=== PATIENT | female | born 1965 | race Caucasian/White ===

== ENCOUNTER 2017-10-13 12:42 | Inpatient (IN) | payer OTHER ==
[~2017-10-13] VITALS: Ht 157.5 cm; Wt 87.5 kg
[2017-10-13] MEDS ORDERED: WARF5TAB90 PO (15:41)
[2017-10-13] MEDS ORDERED: LAMO200T35 PO (15:41)
[2017-10-13] MEDS ORDERED: LEVE250T PO (15:41)
[2017-10-13] MEDS ORDERED: GABA-113 PO (15:41)
[2017-10-13] MEDS ORDERED: EFF/375 PO (15:41)
[2017-10-13] MEDS ORDERED: ESCI1TAB10 PO (15:41)
[2017-10-13] MEDS ORDERED: TOPI200T6 PO (15:41)
[2017-10-13] MEDS ORDERED: LPT/40 PO (15:41)
[2017-10-13] MEDS ORDERED: ESLI1TAB2 PO (15:41)
[2017-10-13] MEDS ORDERED: ACETAMINOPHEN 325 MG TAB PO PRN (15:45)
[2017-10-13 15:52] VITALS: BP 119/81; PULSE 63; TEMP 36.6; O2SAT 98
--- NOTE | 2017-10-13 16:05 | History and Physical ---
History & Physical Date & Time of Service: Oct 13, 2017 at 15:24 Chief Complaint: Failed Uti Treatment Primary Care Physician: Kenneth Galindo D.O. History of Present Illness Source: patient, hospital records Ms. Larose has difficulty telling her history due to history of CVA with some expressive aphasia. She arrived at [facility] yesterday for UTI which is chronic multi resistant Klebsiella. She initially went to [facility] due to pain with urination, frequency, aches and chills but no fever, she is chronically incontinent. She has some sob and chest pain which she says is her baseline due to achalasia for which she has had surgical intervention in the past. She does not have any known cardiac history. She has a history of constipation and at times diarrhea. She generally does not have a bowl movement more than once per week. At [facility] she was found to have an elevated INR of 5.0 ROS Constitutional: no chills, aches, sweats or fever Respiratory: no cough, sputum, or wheezing Cardiac: no palpitations, edema, orthopnea or lightheadedness GI: no abdominal pain, nausea, vomiting, diarrhea or constipation : see HPI Extremities: no joint pain or weakness Skin: no rash All other systems reviewed and negative Pmhx: UTI, CVA with right hemiplesia and expressive aphasia, achalasia, partial bowel resection due to obstruction, surgery for achalasia, seizure disorder, depression, hld Past Medical/Surgical History Medical Problems: (1) UTI (urinary tract infection) Family History Heart disease Social History Smoking Status: Never Smoker Alcohol Use: none Marital Status: single Housing status: lives alone Occupational Status: disabled Allergies Coded Allergies: Cephalosporins (Verified Allergy, Unknown, RASH, 10/13/17) unknown reaction Nifedipine (Verified Allergy, Unknown, RASH, 10/13/17) unknown reaction Prochlorperazine (Verified Allergy, Unknown, RASH, 10/13/17) unknown reaction Home Medications Scheduled Atorvastatin (Lipitor), 40 MG PO DAILY Escitalopram Oxalate (Lexapro), 20 MG PO DAILY Eslicarbazepine Acetate (Aptiom), 400 TAB PO DAILY Gabapentin (Neurontin), 600 MG PO TID Lamotrigine (Lamictal), 200 MG PO BID Levetiracetam (Keppra), 500 MG PO BID Topiramate (Topamax), 1 TAB PO BID Venlafaxine Hcl (Effexor), 37.5 MG PO DAILY Warfarin Sodium (Coumadin), 1 TAB PO DAILY Physical Exam General: no distress Eyes: normal inspection, pupils reactive Respiratory: chest non tender, clear to auscultation, normal breath sounds, no respiratory distress, no accessory muscle use Cardiac: regular rate and rhythm, no rub or gallop, no murmur, no edema, no jvd GI/: active bowel sounds, no abd pain or tenderness, soft, non distended Extremities: normal range of motion, normal strength, non tender Neuro/Psych: alert and oriented x 3, normal mood and affect, expressive aphasia , right arm weakness with right hand contracture, right leg weakness, right facial droop, tongue skews right when stuck out, EOEM intact, left pupil 4mm, right pupil 3mm Skin: normal color, dry Diagnostics Laboratory Results Results Past 24 Hours Test 10/13/17 15:12 Range/Units Microbiology Results 10/13/17 Urine Culture, Ordered Pending Impression Assessment and Plan Ms. Larose is a 51 year old woman here with chronic klebsiella UTI Chronic Klebsiella UTI - admit med surg - Urine culture - consult ID - has had multiple rounds of ertapenem, will start imipenem - NSS @ 100 ml/hr - Coates catheter - consult urology - patient sees Dr. Moreno - cbc, prp - renal US - contact precautions Hx of seizure disorder - continue home Keppra, Aptiom, Gabapentin, Topamax Hx of CVA with right hemiplegia - INR at [facility] 5.24 - repeat INR - hold warfarin for now - continue lipitor Full code DVT prophylaxis - SCDs, hold warfarin for supratherapeutic INR PARKING ATTENDANT Physician Supervision Note: I interviewed and examined the patient. Discussed with Rachel Ascencio PARKING ATTENDANT and agree with findings and plan as documented in the note. Any exceptions or clarifications are listed here: None This patient is a transfer from [facility] for multidrug-resistant, ESBL, Klebsiella recurrent urinary tract infection. Patient has physical limitations due to stroke with hemiplegia and has had recurrent UTIs typically seen by Dr. Moreno in the [facility] urology group. Patient presented to [facility] shortly after being treated for this Klebsiella UTI with recurrent recurrence and request for transfer was for urological and infectious disease expertise Sensitivity sent from [facility] do include the "penem" class of antibiotics she will be instituted on imipenem with infectious disease consultation Documented By: Tez Miller Advanced Directives Existing Advance Directive: No Existing Living Will: No Existing Power of Heel Splitter: No Existing Health Care Proxy: No Resuscitation Status full code VTE Prophylaxis Will order VTE Prophylaxis: Yes
[2017-10-13] MEDS ORDERED: ONDANSETRON INJ 2 MG/ML 2 ML VIAL IV PRN (16:15)
[2017-10-13 16:32] LABS: MEAN CELL VOLUME 92.2 fL (80-100); MEAN CORPUSCULAR HEMOGLOBIN 29.1 pg (25-34); MEAN CORPUSCULAR HGB CONC 31.6 g/dl (32-36); MEAN PLATELET VOLUME 9.2 fL (7.4-10.4); PLATELET COUNT 198 K/uL (130-400); RED CELL DISTRIBUTION WIDTH CV 13.9 % (11.5-14.5); RED CELL DISTRIBUTION WIDTH SD 46.7 fL (36.4-46.3); WHITE BLOOD COUNT 7.11 K/uL (4.8-10.8)
[2017-10-13 16:45] LABS: INR 4.4 (0.9-1.1)
[2017-10-13 16:54] LABS: BLOOD UREA NITROGEN 6 mg/dl (7-18); CALCIUM 8.6 mg/dl (8.5-10.1); CARBON DIOXIDE 21 mmol/L (21-32); CREATININE 0.64 mg/dl (0.60-1.20); GLUCOSE 84 mg/dl (70-99); SODIUM 141 mmol/L (136-145)
[2017-10-13 17:32] VITALS: BMI 35.3
[2017-10-13] MEDS: SODIUM CHLORIDE 0.9% 1000ML 1,000 ML IV SCH (17:43)
[2017-10-13] MEDS: IMIPENEM/CILASTATIN IV 500 MG in DEXTROSE 5% 100ML 100 ML IV SCH (18:09)
[2017-10-13 18:16] VITALS: BP 119/81; PULSE 63; TEMP 36.6; Ht 157.5 cm; Wt 87.5 kg
--- NOTE | 2017-10-13 20:01 | DIAGNOSTIC IMAGING REPORT ---
ULTRASOUND KIDNEYS AND BLADDER CLINICAL HISTORY: Recurrent urinary tract infections. COMPARISON STUDY: No priors. TECHNIQUE: Real-time, grayscale, and color flow sonography of the kidneys and bladder is performed. Images are reviewed in the transverse and longitudinal planes. FINDINGS: Kidneys: The kidneys are normal in size and echotexture. The right kidney measures 9.7 x 4.7 x 5.0 cm and the left kidney measures 12.1 x 4.5 x 5.3 cm. There is no hydronephrosis. Bilateral nonobstructing renal calculi measuring up to 8 mm. There is no sonographic evidence of contour deforming renal mass lesion. No perinephric fluid is identified. Bladder: The bladder is largely decompressed around a Coates catheter and not well evaluated. Ureteral jets could not be evaluated. IMPRESSION: 1. The kidneys are normal in size and without hydronephrosis. 2. Bilateral nonobstructing renal calculi are identified. 3. The bladder was decompressed around a Coates catheter and not well evaluated. Electronically signed by: Jaun Merlos M.D. 10/13/2017 8:00 PM Dictated Date/Time: 10/13/2017 7:59 PM
[2017-10-13] MEDS: TOPIRAMATE 100 MG TAB PO SCH (20:17)
[2017-10-13] MEDS: BACLOFEN TAB 20 MG TAB PO SCH (20:18)
[2017-10-13] MEDS: GABAPENTIN 300 MG CAP PO SCH (20:19)
[2017-10-13] MEDS: LEVETIRACETAM 250 MG TAB PO SCH (20:19)
[2017-10-13 23:23] VITALS: BP 115/77; PULSE 64; TEMP 36.6; O2SAT 98
[2017-10-14] MEDS: IMIPENEM/CILASTATIN IV 500 MG in DEXTROSE 5% 100ML 100 ML IV SCH ×4 (00:23→17:32)
[2017-10-14] MEDS: SODIUM CHLORIDE 0.9% 1000ML 1,000 ML IV SCH ×2 (06:04→13:00)
[2017-10-14 07:44] LABS: HEMATOCRIT 35.4 % (37-47); HEMOGLOBIN 11.4 g/dL (12.0-16.0); MEAN CELL VOLUME 91.5 fL (80-100); MEAN CORPUSCULAR HEMOGLOBIN 29.5 pg (25-34); MEAN CORPUSCULAR HGB CONC 32.2 g/dl (32-36); MEAN PLATELET VOLUME 9.2 fL (7.4-10.4); PLATELET COUNT 184 K/uL (130-400); RED CELL DISTRIBUTION WIDTH CV 13.8 % (11.5-14.5); RED CELL DISTRIBUTION WIDTH SD 46.1 fL (36.4-46.3); WHITE BLOOD COUNT 7.84 K/uL (4.8-10.8)
[2017-10-14 07:45] VITALS: BP 81/49; PULSE 64; TEMP 36.7; O2SAT 96
[2017-10-14] MEDS: VENLAFAXINE HCL XR 150 MG CAPXR PO SCH (07:48)
[2017-10-14] MEDS: GABAPENTIN 300 MG CAP PO SCH ×3 (07:49→20:26)
[2017-10-14] MEDS: LEVETIRACETAM 250 MG TAB PO SCH ×2 (07:49→20:28)
[2017-10-14] MEDS: ESCITALOPRAM OXALATE 20 MG TAB PO SCH (07:49)
[2017-10-14] MEDS: BACLOFEN TAB 20 MG TAB PO SCH ×2 (07:50→20:27)
[2017-10-14] MEDS: ATORVASTATIN 40 MG TAB PO SCH (07:50)
[2017-10-14] MEDS: TOPIRAMATE 100 MG TAB PO SCH ×2 (07:51→20:28)
[2017-10-14] MEDS: APTIOM PO SCH (07:51)
[2017-10-14 07:53] LABS: INR 2.4 (0.9-1.1)
[2017-10-14 08:14] LABS: CALCIUM 7.8 mg/dl (8.5-10.1); CREATININE 0.66 mg/dl (0.60-1.20); POTASSIUM 3.6 mmol/L (3.5-5.1)
[2017-10-14 10:15] LABS: INR 2.2 (0.9-1.1)
--- NOTE | 2017-10-14 10:50 | Hospitalist Progress Note ---
Hospitalist Progress Note Date of Service Oct 14, 2017. (Rachel Ascencio CRNP) Subjective Pt evaluation today including: conversation w/ patient, physical exam, chart review, lab review, review of inpatient medication list Voiding: willoughby catheter in place Ms. Larose is comfortable this morning, no complaints. ROS Constitutional: no chills, aches, sweats or fever Respiratory: no sob,cough, sputum, or wheezing Cardiac: no chest pain, palpitations, edema, orthopnea or lightheadedness GI: no abdominal pain, nausea, vomiting, diarrhea or constipation : no dysuria or hesitancy Extremities: no joint pain or weakness Skin: no rash All other systems reviewed and negative (Rachel Ascencio CRNP) Medications Medications Administered Medications (Trade) Dose Ordered Sig/Silvia Route Start Time Stop Time Status Last Admin Dose Admin Imipenem/ Cilastatin Sodium 500 mg/Dextrose 110 ml @ 100 mls/hr Q6H IV 10/13/17 18:00 10/18/17 17:59 10/14/17 06:04 100 MLS/HR Sodium Chloride 1,000 ml @ 100 mls/hr Q10H IV 10/13/17 17:00 11/12/17 16:59 10/14/17 06:04 100 MLS/HR Atorvastatin Calcium (Lipitor Tab) 40 mg DAILY PO 10/14/17 08:00 11/13/17 07:59 10/14/17 07:50 40 MG Escitalopram Oxalate (Lexapro Tab) 20 mg DAILY PO 10/14/17 08:00 11/13/17 07:59 10/14/17 07:49 20 MG Gabapentin (Neurontin Cap) 600 mg TID PO 10/13/17 20:00 11/12/17 19:59 10/14/17 07:49 600 MG Lamotrigine (Lamictal Tab) 200 mg BID PO 10/13/17 20:00 11/12/17 19:59 10/14/17 07:49 200 MG Levetiracetam (Keppra Tab) 500 mg BID PO 10/13/17 20:00 11/12/17 19:59 10/14/17 07:49 500 MG Topiramate (Topamax Tab) 200 mg BID PO 10/13/17 20:00 11/12/17 19:59 10/14/17 07:51 200 MG Venlafaxine HCl (effeXOR EXTENDED REL CAP) 150 mg DAILY PO 10/14/17 08:00 11/13/17 07:59 10/14/17 07:48 150 MG Baclofen (Lioresal Tab) 10 mg BID PO 10/13/17 20:00 11/12/17 19:59 10/14/17 07:50 10 MG Non-Formulary Medication (Non-Formulary Patient'S Own Med) 1 ea QAM PO 10/14/17 08:00 11/13/17 07:59 10/14/17 07:51 1 EA (Rachel Ascencio CRNP) Objective Vital Signs Date Time Temp Pulse Resp B/P (MAP) Pulse Ox O2 Delivery O2 Flow Rate FiO2 10/14/17 07:45 36.7 64 16 81/49 (60) 96 Room Air 10/13/17 23:23 36.6 64 18 115/77 (90) 98 Room Air 10/13/17 20:00 Room Air 10/13/17 18:16 36.6 63 18 119/81 Room Air 10/13/17 15:52 36.6 63 18 119/81 (94) 98 Room Air (Rachel Ascencio CRNP) Physical Exam Notes: General: no distress Eyes: normal inspection, PERLL Respiratory: chest non tender, clear to auscultation, normal breath sounds, no respiratory distress, no accessory muscle use Cardiac: regular rate and rhythm, no rub or gallop, no murmur, no edema, no jvd GI/: active bowel sounds, no abd pain or tenderness, soft, non distended Extremities: normal range of motion, normal strength, non tender Neuro/Psych: alert and oriented x 3, normal mood and affect Skin: normal color, dry (Rachel Ascencio CRNP) Laboratory Results Last 24 Hours Test 10/13/17 16:10 10/14/17 07:14 10/14/17 09:41 White Blood Count 7.11 K/uL 7.84 K/uL Red Blood Count 4.12 M/uL 3.87 M/uL Hemoglobin 12.0 g/dL 11.4 g/dL Hematocrit 38.0 % 35.4 % Mean Corpuscular Volume 92.2 fL 91.5 fL Mean Corpuscular Hemoglobin 29.1 pg 29.5 pg Mean Corpuscular Hemoglobin Concent 31.6 g/dl 32.2 g/dl RDW Standard Deviation 46.7 fL 46.1 fL RDW Coefficient of Variation 13.9 % 13.8 % Platelet Count 198 K/uL 184 K/uL Mean Platelet Volume 9.2 fL 9.2 fL Prothrombin Time 44.5 SECONDS 24.6 SECONDS 22.8 SECONDS Prothromb Time International Ratio 4.4 2.4 2.2 Sodium Level 141 mmol/L 139 mmol/L Potassium Level 4.0 mmol/L 3.6 mmol/L Chloride Level 113 mmol/L 109 mmol/L Carbon Dioxide Level 21 mmol/L 21 mmol/L Anion Gap 7.0 mmol/L 9.0 mmol/L Blood Urea Nitrogen 6 mg/dl 6 mg/dl Creatinine 0.64 mg/dl 0.66 mg/dl Estimated GFR () 118.1 116.9 Estimated GFR (Non- 101.9 100.9 BUN/Creatinine Ratio 9.6 9.0 Random Glucose 84 mg/dl 90 mg/dl Calcium Level 8.6 mg/dl 7.8 mg/dl Est Creatinine Clear Calc Drug Dose 101.3 ml/min (Rachel Ascencio CRNP) Assessment and Plan Ms. Larose is a 51 year old woman here with chronic klebsiella UTI Chronic Klebsiella UTI - admit med surg - Urine culture pending - consult ID - has had multiple rounds of ertapenem for these infections, continue imipenem - NSS @ 100 ml/hr - Willoughby catheter - consult urology - patient sees Dr. Moreno - renal US - no abnormalities visualized - contact precautions Hx of seizure disorder - continue home Keppra, Aptiom, Gabapentin, Topamax Hx of CVA with right hemiplegia - INR at [facility] 5.24 - repeat INR this morning 2.2 - will restart warfarin today - PT/INR am - continue lipitor Full code DVT prophylaxis - SCDs, warfarin (Rachel Ascencio CRNP) ACCOUNT MANAGEMENT ASSISTANT Physician Supervision Note: I discussed with Rachel Ascencio NP and agree with findings and plan as documented in the note. Any exceptions or clarifications are listed here: None We are waiting both urology and infectious disease consultation the patient is hemodynamically stable at this time continuing antibiotic therapy Documented By: Tez Miller (Tez Miller M.D.)
[2017-10-14 15:25] VITALS: BP 93/63; PULSE 77; TEMP 36.7; O2SAT 96
[2017-10-14] MEDS: WARFARIN SOD 5 MG TAB PO SCH (16:05)
--- NOTE | 2017-10-14 19:37 | Urology Consultation ---
History General Date of Service: Oct 14, 2017. Chief Complaint: ESBL UTI Primary Care Physician: Kenneth Galindo D.O. Pt seen a urologist before?: Yes History of Present Illness Known patient with chronic reoccuring intermittent UTIs Has Kleb ESBL UTI Moderates symptoms. Likely colonized at this point Multiple medical issues at baseline after major CVA ON iv antibiotics HPI - Stones Number: Bilateral Size: 8 mm Location: kidney Laboratory Labs were reviewed and are within normal limits unless listed below. Labs are available in the chart and at [facility] Past History chronic back pain, chronic pelvic pain, coronary artery disease (stroke), migraines, urinary tract infection Social History Marital status: single Housing status: lives alone Occupation status: disabled Allergies Coded Allergies: Cephalosporins (Verified Allergy, Unknown, RASH, 10/13/17) unknown reaction Nifedipine (Verified Allergy, Unknown, RASH, 10/13/17) unknown reaction Prochlorperazine (Verified Allergy, Unknown, RASH, 10/13/17) unknown reaction Medications Home Medications: Home Meds and Scripts Medications Dose Route/Sig Max Daily Dose Days Date Category Coumadin (Warfarin Sodium) 5 Mg Tab 1 Tab PO DAILY 90 10/13/17 Reported Aptiom (Eslicarbazepine Acetate) 400 Mg Tab 400 Tab PO DAILY 10/13/17 Reported Effexor (Venlafaxine Hcl) 37.5 Mg Tab 37.5 Mg PO DAILY 10/13/17 Reported Topamax (Topiramate) 200 Mg Tab 1 Tab PO BID 30 10/13/17 Reported Keppra (Levetiracetam) 250 Mg Tab 500 Mg PO BID 10/13/17 Reported Lamictal (Lamotrigine) 200 Mg Tab 200 Mg PO BID 10/13/17 Reported Neurontin (Gabapentin) 300 Mg Cap 600 Mg PO TID 10/13/17 Reported Lexapro (Escitalopram Oxalate) 20 Mg Tab 20 Mg PO DAILY 10/13/17 Reported Lipitor (Atorvastatin) 40 Mg Tab 40 Mg PO DAILY 10/13/17 Reported Inpatient Medications: Current Inpatient Medications Medications (Trade) Dose Ordered Sig/Silvia Route Start Time Stop Time Status Last Admin Dose Admin Acetaminophen (Tylenol Tab) 650 mg Q4H PRN PO 10/13/17 15:45 11/12/17 15:44 Imipenem/ Cilastatin Sodium 500 mg/Dextrose 110 ml @ 100 mls/hr Q6H IV 10/13/17 18:00 10/18/17 17:59 10/14/17 06:04 100 MLS/HR Sodium Chloride 1,000 ml @ 100 mls/hr Q10H IV 10/13/17 17:00 11/12/17 16:59 10/14/17 06:04 100 MLS/HR Atorvastatin Calcium (Lipitor Tab) 40 mg DAILY PO 10/14/17 08:00 11/13/17 07:59 10/14/17 07:50 40 MG Escitalopram Oxalate (Lexapro Tab) 20 mg DAILY PO 10/14/17 08:00 11/13/17 07:59 10/14/17 07:49 20 MG Gabapentin (Neurontin Cap) 600 mg TID PO 10/13/17 20:00 11/12/17 19:59 10/14/17 07:49 600 MG Lamotrigine (Lamictal Tab) 200 mg BID PO 10/13/17 20:00 11/12/17 19:59 10/14/17 07:49 200 MG Levetiracetam (Keppra Tab) 500 mg BID PO 10/13/17 20:00 11/12/17 19:59 10/14/17 07:49 500 MG Topiramate (Topamax Tab) 200 mg BID PO 10/13/17 20:00 11/12/17 19:59 10/14/17 07:51 200 MG Venlafaxine HCl (effeXOR EXTENDED REL CAP) 150 mg DAILY PO 10/14/17 08:00 11/13/17 07:59 10/14/17 07:48 150 MG Baclofen (Lioresal Tab) 10 mg BID PO 10/13/17 20:00 11/12/17 19:59 10/14/17 07:50 10 MG Ondansetron HCl (Zofran Inj) 4 mg Q6H PRN IV 10/13/17 16:15 11/12/17 16:14 Non-Formulary Medication (Non-Formulary Patient'S Own Med) 1 ea QAM PO 10/14/17 08:00 11/13/17 07:59 10/14/17 07:51 1 EA Warfarin Sodium (Coumadin Tab) 5 mg DAILY@1600 PO 10/14/17 16:00 11/13/17 15:59 Review of Systems Review of Systems All Other Systems: Reviewed and Negative Physical Exam Vital Signs: Vital Signs Past 12 Hours Date Time Temp Pulse Resp B/P (MAP) Pulse Ox O2 Delivery O2 Flow Rate FiO2 10/14/17 07:45 36.7 64 16 81/49 (60) 96 Room Air Physical Exam: General Appearance: WD/WN, no apparent distress Eyes: bilateral eyes normal inspection ENT: hearing grossly normal Neck: no JVD, trachea midline Respiratory/Chest: no respiratory distress Cardiovascular: regular rate, rhythm Gastrointestinal: Abdomen: normal abdomen Extremities: normal inspection Neurologic/Psychiatric: 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 ESBL Kleb UTI, chronic with acute exacerbation 2. BIlateral stones Plan to continue antibiotics and supportive care. Agree with ID Consult to assess source and other management options to deal with infections May need stones treated as possible source, however will need better control of UTI issues. Monitor and follow.
[2017-10-14 22:44] VITALS: BP 102/68; PULSE 63; TEMP 36.7; O2SAT 96
[2017-10-15] MEDS: SODIUM CHLORIDE 0.9% 1000ML 1,000 ML IV SCH ×3 (00:28→19:45)
[2017-10-15] MEDS: IMIPENEM/CILASTATIN IV 500 MG in DEXTROSE 5% 100ML 100 ML IV SCH ×3 (00:28→12:21)
[2017-10-15 05:57] LABS: HEMATOCRIT 35.4 % (37-47); HEMOGLOBIN 11.4 g/dL (12.0-16.0); MEAN CORPUSCULAR HEMOGLOBIN 29.3 pg (25-34); MEAN CORPUSCULAR HGB CONC 32.2 g/dl (32-36); MEAN PLATELET VOLUME 9.3 fL (7.4-10.4); PLATELET COUNT 169 K/uL (130-400); RED CELL DISTRIBUTION WIDTH CV 13.8 % (11.5-14.5); RED CELL DISTRIBUTION WIDTH SD 45.6 fL (36.4-46.3); WHITE BLOOD COUNT 5.05 K/uL (4.8-10.8)
[2017-10-15 06:10] LABS: INR 1.7 (0.9-1.1)
[2017-10-15 06:36] LABS: CALCIUM 8.2 mg/dl (8.5-10.1); CREATININE 0.6 mg/dl (0.60-1.20); POTASSIUM 3.7 mmol/L (3.5-5.1)
[2017-10-15 07:40] VITALS: BP 93/59; PULSE 64; TEMP 36.6; O2SAT 97
[2017-10-15] MEDS: TOPIRAMATE 100 MG TAB PO SCH ×2 (09:27→19:46)
[2017-10-15] MEDS: VENLAFAXINE HCL XR 150 MG CAPXR PO SCH (09:27)
[2017-10-15] MEDS: LEVETIRACETAM 250 MG TAB PO SCH ×2 (09:28→19:47)
[2017-10-15] MEDS: ATORVASTATIN 40 MG TAB PO SCH (09:28)
[2017-10-15] MEDS: BACLOFEN TAB 20 MG TAB PO SCH ×2 (09:28→19:46)
[2017-10-15] MEDS: ESCITALOPRAM OXALATE 20 MG TAB PO SCH (09:28)
[2017-10-15] MEDS: GABAPENTIN 300 MG CAP PO SCH ×3 (09:28→19:47)
[2017-10-15] MEDS: APTIOM PO SCH (09:29)
--- NOTE | 2017-10-15 11:04 | Progress Note ---
Progress Note Date of Service Oct 15, 2017. Progress Note ID Consult Dictated #[id number] A/P: 1. UTI - mdr k. pneumo at outside facility -would give 14 days total, tolerating imipenem, repeat culture negative -If previous culture is sensitive to Invanz, could give 1 g daily for ease of use at home with once daily dosing -Ok for d/c when otherwise stable. thank you
--- NOTE | 2017-10-15 11:15 | INFECT. DISEASE CONSULTATION ---
DATE OF CONSULTATION: 10/15/2017 HISTORY OF PRESENT ILLNESS: This is a 51-year-old female who was admitted to the hospital as a transfer from [place] with history of UTI. Per the H and P, she has a history of multidrug resistant Klebsiella. Review of old records does not reveal any previous cultures here. Sensitivities are not known. She is feeling significantly better. As part of her therapy, she was placed on imipenem and she remains on this. She has been afebrile since admission. A repeat urine culture was obtained here and is negative. Her white blood cell count is within normal limits. She does have a Coates catheter in place but states she normally does not have a catheter at home. She was also seen by urology and she is known to have stones. No workup for management of her stones is in progress as she is currently dealing with recurrent infection. On my examination today, she denies any abdominal pain. She denies any fevers or chills. She denies any chest pain, cough, or shortness of breath. Overall, she states she is feeling better. She is tolerating antibiotics well. Her remaining review of systems is reviewed and unremarkable. PAST MEDICAL HISTORY: Significant for CVA with expressive aphasia and right-sided weakness and recurrent urinary tract infection with kidney stones. PAST SURGICAL HISTORY: Significant for partial bowel resection, achalasia surgery. FAMILY HISTORY: Noncontributory. SOCIAL HISTORY: Negative for tobacco use, alcohol use or drug use. ALLERGIES: SHE HAS ALLERGIES TO CEPHALOSPORINS, NIFEDIPINE AND PROCHLORPERAZINE. CURRENT MEDICATIONS: Coumadin, Lipitor, Lexapro, Effexor, Neurontin, Lamictal, Keppra, Topamax, baclofen, imipenem, Zofran and Tylenol. PHYSICAL EXAMINATION: VITAL SIGNS: She is afebrile, pulse 64, respiratory rate 16, blood pressure 93/59, oxygen saturation is 97% on room air. GENERAL: She is awake, alert and oriented x3. She is in no acute distress. HEENT: Mucous membranes are moist. Extraocular muscles are intact. HEART: Regular. LUNGS: Clear. ABDOMEN: Soft. Coates is in place with yellow urine. There is no edema. LABORATORY STUDIES: CBC today, white blood cell count 5.0, hemoglobin 11.4, platelets 169. Chemistry panel: Sodium 141, potassium 3.7, chloride 112, bicarbonate 22, BUN 7, creatinine 0.6, glucose 77. Hep C screen is negative. Urine culture is negative. UA was not performed. I do not have previous sensitivities, but per the H and P, she has a multidrug resistant Klebsiella. Ultrasound of the kidneys shows no hydronephrosis and bilateral nonobstructing stones. ASSESSMENT AND PLAN: Urinary tract infection. Certainly, she can be maintained on imipenem; however, if her isolate is sensitive to ertapenem, she could be discharged home once daily ertapenem for use at home. I would give a total of 14 days. She will need additional urologic followup as her stones may very well be a source of recurrent infection. Thank you for this consultation.
--- NOTE | 2017-10-15 14:51 | Hospitalist Progress Note ---
Hospitalist Progress Note Date of Service Oct 15, 2017. Subjective Pt evaluation today including: conversation w/ patient, conversation w/ family ( at bedside), physical exam, chart review, lab review, review of inpatient medication list Pain: intermittent suprapubic pain PO Intake: Tolerating PO diet Voiding: willoughby catheter in place Patient complains of an intermittent sharp suprapubic pain, that can be up to a 7/10 in intensity at times. She states the pain at times radiates to her left flank. She otherwise denies acute complaints. She is tolerating a PO diet well. A Willoughby catheter is in place. The patient denies fevers, chills, sweats , chest pain, palpitations, claudication, cough, wheezing, shortness of breath, nausea, vomiting, dysuria, hematuria, urinary retention, paralysis, weakness, numbness and tingling. Additional Comments: See HPI for pertinent positives and negatives. All other systems reviewed and negative. Objective Vital Signs Date Time Temp Pulse Resp B/P (MAP) Pulse Ox O2 Delivery O2 Flow Rate FiO2 10/15/17 09:30 Room Air 10/15/17 07:40 36.6 64 16 93/59 (70) 97 Room Air 10/14/17 22:44 36.7 63 18 102/68 (79) 96 Room Air 10/14/17 22:00 Room Air 10/14/17 15:25 36.7 77 18 93/63 (73) 96 Room Air Physical Exam Notes: General appearance: +Obese. Well-developed, well-nourished, no apparent distress Head: Normocephalic, atraumatic Eyes: Normal inspection, PERRL, EOMI ENT: Normal ENT inspection, hearing grossly normal, pharynx normal Neck: Supple, no JVD, trachea midline Respiratory/Chest: Lungs clear to auscultation, normal breath sounds, no respiratory distress Cardiovascular: Regular rate & rhythm, no gallop, no murmur Abdomen/GI: +Suprapubic area TTP. Normal bowel sounds, soft Extremities/Musculoskeletal: Normal inspection, no calf tenderness, no pedal edema Neurological/Psych: +Right hemiplegia and mild aphasia from previous CVA. Alert, normal mood/affect, oriented x 3 Skin: Normal color, warm/dry, no rash Laboratory Results Last 24 Hours Test 10/15/17 05:34 White Blood Count 5.05 K/uL Red Blood Count 3.89 M/uL Hemoglobin 11.4 g/dL Hematocrit 35.4 % Mean Corpuscular Volume 91.0 fL Mean Corpuscular Hemoglobin 29.3 pg Mean Corpuscular Hemoglobin Concent 32.2 g/dl RDW Standard Deviation 45.6 fL RDW Coefficient of Variation 13.8 % Platelet Count 169 K/uL Mean Platelet Volume 9.3 fL Prothrombin Time 18.1 SECONDS Prothromb Time International Ratio 1.7 Sodium Level 141 mmol/L Potassium Level 3.7 mmol/L Chloride Level 112 mmol/L Carbon Dioxide Level 22 mmol/L Anion Gap 7.0 mmol/L Blood Urea Nitrogen 7 mg/dl Creatinine 0.60 mg/dl Est Creatinine Clear Calc Drug Dose 111.4 ml/min Estimated GFR () 120.6 Estimated GFR (Non- 104.1 BUN/Creatinine Ratio 11.5 Random Glucose 77 mg/dl Calcium Level 8.2 mg/dl Hepatitis C Antibody Screen NEG Assessment and Plan 51 y/o female with a history of recurrent klebsiella UTI, h/o CVA w/residual right hemiplegia and aphasia, HLD, seizure disorder, and depression who presents from [facility] with acute klebsiella UTI. Acute klebsiella UTI, h/o recurrent UTI--transferred due to "failure of ertapenem" but recurrent infections may be related to bilateral renal stones rather than failing ertapenem - Admit med surg - Reviewed urine culture at [facility], positive for EBSL Klebsiella w/good sensitivity to ertapenem - Urine culture here negative, was treated w/abx at [facility] - ID consulted, appreciate recs: If culture has sensitivity to ertapenem, would discharge home w/this as it is only once a day. Would continue for 14 days. - Will change imipenem to ertapenem, first dose tomorrow - Consented for PICC line - Urology consulted, appreciate recs: Continue abx and supportive care. May need stones treated as possible source, however will need better control of UTI issues. - NSS @ 100 ml/hr - Willoughby catheter - Renal US - no abnormalities visualized - contact precautions Supratherapeutic INR--resolved -INR over 5 at [facility], warfarin was held -INR 1.7 on 10/15, continue to monitor -Continue warfarin 5 mg PO qd H/o CVA w/residual right hemiplegia, HLD--stable - Continue Lipitor Seizure disorder--stable -Continue Lamictal, Keppra, gabapentin, Aptiom, Topamax Depression--stable -Continue Lexapro and Effexor DVT prophylaxis -Warfarin -SCDs Code Status -Level I, FULL RESUSCITATION STATUS Dispo -Case management to set up outpatient abx, will need 2 weeks
[2017-10-15] MEDS: WARFARIN SOD 5 MG TAB PO SCH (16:16)
[2017-10-15 22:58] VITALS: BP 108/74; PULSE 63; TEMP 36.3; O2SAT 95
[2017-10-16] MEDS: SODIUM CHLORIDE 0.9% 1000ML 1,000 ML IV SCH (04:38)
[2017-10-16 06:10] LABS: HEMATOCRIT 34.6 % (37-47); MEAN CELL VOLUME 91.3 fL (80-100); MEAN CORPUSCULAR HGB CONC 31.8 g/dl (32-36); MEAN PLATELET VOLUME 9.2 fL (7.4-10.4); PLATELET COUNT 169 K/uL (130-400); RED CELL DISTRIBUTION WIDTH CV 13.6 % (11.5-14.5); RED CELL DISTRIBUTION WIDTH SD 45.2 fL (36.4-46.3); WHITE BLOOD COUNT 5.61 K/uL (4.8-10.8)
[2017-10-16 06:30] LABS: INR 1.9 (0.9-1.1)
[2017-10-16 06:44] LABS: CALCIUM 7.8 mg/dl (8.5-10.1); CREATININE 0.6 mg/dl (0.60-1.20); POTASSIUM 3.9 mmol/L (3.5-5.1)
[2017-10-16 07:50] VITALS: BP 110/73; PULSE 58; TEMP 36.6; O2SAT 95
[2017-10-16 08:00] VITALS: O2SAT 95
[2017-10-16] MEDS: VENLAFAXINE HCL XR 150 MG CAPXR PO SCH (08:07)
[2017-10-16] MEDS: ESCITALOPRAM OXALATE 20 MG TAB PO SCH (08:08)
[2017-10-16] MEDS: GABAPENTIN 300 MG CAP PO SCH ×2 (08:08→14:21)
[2017-10-16] MEDS: ATORVASTATIN 40 MG TAB PO SCH (08:09)
[2017-10-16] MEDS: TOPIRAMATE 100 MG TAB PO SCH (08:09)
[2017-10-16] MEDS: LEVETIRACETAM 250 MG TAB PO SCH (08:10)
[2017-10-16] MEDS: APTIOM PO SCH (08:10)
[2017-10-16] MEDS: BACLOFEN TAB 20 MG TAB PO SCH (08:10)
[2017-10-16] MEDS ORDERED: ERTAPENEM IV 1 GM in SODIUM CHLOR 0.9% AD-VAN 50ML 50 ML IV SCH (09:00)
[2017-10-16] MEDS ORDERED: ERTA1INJ3 IV (12:18)
--- NOTE | 2017-10-16 12:38 | Discharge Instructions ---
Discharge Instructions Date of Service Oct 16, 2017. Admission Reason for Admission: Failed Uti Treatment Discharge Discharge Diagnosis / Problem: Urinary tract infection Discharge Goals Goal(s): Decrease discomfort, Diagnostic testing, Therapeutic intervention Activity Recommendations Activity Limitations: resume your previous activity . Instructions / Follow-Up Instructions / Follow-Up You were transferred to [facility] from [facility] after being found to have another klebsiella urinary tract infection (UTI). Your urine culture results were reviewed and you were evaluated by both urology and infectious disease, who felt that your kidney stones may be the source of these recurrent infections, rather than failure of the antibiotic treatments. You had a midline placed to receive IV antibiotics and have been discharged with a 2 week IV antibiotic course. You are now medically stable for discharge. Medications: *You will receive ertapenem 1 gram IV daily for 14 days to complete your antibiotic course. *Continue your home medications as prescribed. Follow up: *You will be scheduled to follow up with your primary care provider as well as urology. After your acute infection resolves, urology will address your kidney stones as an outpatient as these may be the source of the recurrent infections. Please seek medical attention if you experience fevers, chills, sweats, dizziness/lightheadedness, loss of consciousness, chest pain, shortness of breath, nausea, vomiting, numbness or tingling. Current Hospital Diet Patient's current hospital diet: AHA Diet (Heart Healthy) Discharge Diet Recommended Diet: AHA Diet (Heart Healthy) Pending Studies Studies pending at discharge: no Medical Emergencies . Who to Call and When: Medical Emergencies: If at any time you feel your situation is an emergency, please call 911 immediately. . Non-Emergent Contact Non-Emergency issues call your: Primary Care Provider, Urologist Call Non-Emergent contact if: you have a fever, you have any medication questions . Past History Medical & Surgical History: (1) UTI (urinary tract infection) . "Provider Documentation" section prepared by Amparo Webb. .
[2017-10-16 12:45] VITALS: BP 110/73; PULSE 58; TEMP 36.6; O2SAT 95
--- NOTE | 2017-10-16 12:47 | Discharge Summary ---
Discharge Summary Date of Service Oct 16, 2017. Discharge Summary Admission Date: Oct 13, 2017 at 14:25 Discharge Date: Oct 16, 2017 Discharge Disposition: Home Principal Diagnosis: ESBL Klebsiella UTI Problems/Secondary Diagnoses: Recurrent klebsiella UTI, h/o CVA w/residual right hemiplegia and aphasia, HLD, seizure disorder, depression Procedures: ULTRASOUND KIDNEYS AND BLADDER CLINICAL HISTORY: Recurrent urinary tract infections. COMPARISON STUDY: No priors. TECHNIQUE: Real-time, grayscale, and color flow sonography of the kidneys and bladder is performed. Images are reviewed in the transverse and longitudinal planes. FINDINGS: Kidneys: The kidneys are normal in size and echotexture. The right kidney measures 9.7 x 4.7 x 5.0 cm and the left kidney measures 12.1 x 4.5 x 5.3 cm. There is no hydronephrosis. Bilateral nonobstructing renal calculi measuring up to 8 mm. There is no sonographic evidence of contour deforming renal mass lesion. No perinephric fluid is identified. Bladder: The bladder is largely decompressed around a Coates catheter and not well evaluated. Ureteral jets could not be evaluated. IMPRESSION: 1. The kidneys are normal in size and without hydronephrosis. 2. Bilateral nonobstructing renal calculi are identified. 3. The bladder was decompressed around a Coates catheter and not well evaluated. Consultations: Urology Infectious disease Medication Reconciliation New Medications: Ertapenem Sodium (Ertapenem) 1 Gm Inj 1 GM IV DAILY for 14 Days, #14 DOSE Continued Medications: Atorvastatin (Lipitor) 40 Mg Tab 40 MG PO DAILY, TAB Escitalopram Oxalate (Lexapro) 20 Mg Tab 20 MG PO DAILY, TAB Eslicarbazepine Acetate (Aptiom) 400 Mg Tab 400 TAB PO DAILY Gabapentin (Neurontin) 300 Mg Cap 600 MG PO TID, CAP Lamotrigine (Lamictal) 200 Mg Tab 200 MG PO BID, TAB Levetiracetam (Keppra) 250 Mg Tab 500 MG PO BID, TAB Topiramate (Topamax) 200 Mg Tab 1 TAB PO BID for 30 Days, #60 TAB 1 Refill Venlafaxine Hcl (Effexor) 37.5 Mg Tab 37.5 MG PO DAILY, TAB Warfarin Sodium (Coumadin) 5 Mg Tab 1 TAB PO DAILY for 90 Days, #90 TAB 1 Refill Discharge Exam Patient reports feeling well today. She denies any abdominal or flank pain today at all. She has not had any fevers, chills, or sweats. She denies any acute complaints. The patient denies fevers, chills, sweats, chest pain, palpitations, claudication, cough, wheezing, shortness of breath, nausea, vomiting, abdominal pain, dysuria, hematuria, urinary retention, paralysis, weakness, numbness and tingling. Constitutional: No fever, No chills, No sweats Eyes: No worsening of vision, No eye pain, No diplopia ENT: No hearing loss, No nasal symptoms, No trouble swallowing Respiratory: No cough, No wheezing, No shortness of breath Cardiovascular: No chest pain, No claudication, No palpitations Abdomen: No pain, No nausea, No vomiting Musculoskeletal: No joint pain, No muscle pain, No swelling Genitourinary - Female: No dysuria, No urinary retention, No hematuria Neurologic: No paralysis, No weakness, No numbness/tingling Integumentary: No rash, No itch, No color change General appearance: +Obese. Well-developed, well-nourished, no apparent distress Head: Normocephalic, atraumatic Eyes: Normal inspection, PERRL, EOMI ENT: Normal ENT inspection, hearing grossly normal, pharynx normal Neck: Supple, no JVD, trachea midline Respiratory/Chest: Lungs clear to auscultation, normal breath sounds, no respiratory distress Cardiovascular: Regular rate & rhythm, no gallop, no murmur Abdomen/GI: Normal bowel sounds, non-tender, soft Extremities/Musculoskeletal: Normal inspection, no calf tenderness, no pedal edema Neurological/Psych: +Residual right hemiplegia and mild aphasia from previous CVA. Alert, normal mood/affect, oriented x 3 Skin: Normal color, warm/dry, no rash Hospital Course 51 y/o female with a history of recurrent klebsiella UTI, h/o CVA w/residual right hemiplegia and aphasia, HLD, seizure disorder, and depression who presents from [facility] with acute klebsiella UTI. Acute klebsiella UTI, h/o recurrent UTI--transferred due to "failure of ertapenem" but recurrent infections may be related to bilateral renal stones rather than failing ertapenem - Admit med surg - Reviewed urine culture at [place], positive for EBSL Klebsiella w/good sensitivity to ertapenem - Urine culture here negative, was treated w/abx at [place] - ID consulted, appreciate recs: If culture has sensitivity to ertapenem, would discharge home w/this as it is only once a day. Would continue for 14 days. - Imipenem changed to ertapenem for ease of use at home and once daily dosing - Midline placed - Urology consulted, appreciate recs: Continue abx and supportive care. May need stones treated as possible source, however will need better control of UTI issues. - NSS @ 100 ml/hr - Coates catheter, d/c prior to discharge - Renal US shows bilateral nonobstructing renal calculi, up to 8 mm in size. No hydronephrosis. - Stones may be responsible for recurrent infections, will schedule outpatient urology follow up to address these after acute infection is resolved - Contact precautions Supratherapeutic INR--resolved -INR over 5 at [place], warfarin was held -INR 1.9 on 10/16 -Continue warfarin 5 mg PO qd H/o CVA w/residual right hemiplegia, HLD--stable - Continue Lipitor Seizure disorder--stable -Continue Lamictal, Keppra, gabapentin, Aptiom, Topamax Depression--stable -Continue Lexapro and Effexor DVT prophylaxis -Warfarin -SCDs Code Status -Level I, FULL RESUSCITATION STATUS Dispo -Case management to set up outpatient abx at [facility], will need 2 weeks Total Time Spent: Greater than 30 minutes This includes examination of the patient, discharge planning, medication reconciliation, and communication with other providers. Discharge Instructions Please refer to the electronic Patient Visit Report (Discharge Instructions) for additional information. Follow-Up PCP Urology Additional Copies To Kenneth Galindo D.O.
== END 2017-10-16 16:14 | disposition home or self-care (01) | DRG 690 ==
LOC: C.4E 14:25
PROVIDERS: ADMIT Family Medicine; ATTEND Nurse Practitioner Family
DX: N39.0 Urinary tract infection, site not specified (principal); I69.351 Hemiplegia and hemiparesis following cerebral infarction affecting right dominant side; N20.0 Calculus of kidney; G40.909 Epilepsy, unspecified, not intractable, without status epilepticus; I69.320 Aphasia following cerebral infarction; Z87.440 Personal history of urinary (tract) infections; Z82.49 Family history of ischemic heart disease and other diseases of the circulatory system; Z88.2 Allergy status to sulfonamides; Z88.8 Allergy status to other drugs, medicaments and biological substances; B96.1 Klebsiella pneumoniae [K. pneumoniae] as the cause of diseases classified elsewhere; F32.9 Major depressive disorder, single episode, unspecified

== ENCOUNTER → 2017-10-26 | Outpatient (CLI) | payer OTHER ==
[~2017-10-26] MED LIST: BACI500O11 TOP; BACL10TA PO; ENOX80IN SQ; ERTA1INJ IV; ESCI1TAB10 PO; ESLI1TAB2 PO; GABA-113 PO; LAMO200T35 PO; LEVE250T PO; LPT/40 PO; OXYC-57 PO; PHEN-775 PO; TOPI200T6 PO; VENL150C56 PO; WARF5TAB90 PO
--- NOTE | 2017-10-26 10:38 | DIAGNOSTIC IMAGING REPORT ---
CT OF THE ABDOMEN AND PELVIS WITHOUT CONTRAST CLINICAL HISTORY: Neurogenic bladder. Urinary incontinence. COMPARISON STUDY: Renal ultrasound October 13, 2017. TECHNIQUE: Axial images of the abdomen and pelvis were obtained without IV contrast. Images were reviewed in the axial, sagittal, and coronal planes. A dose lowering technique was utilized adhering to the principles of ALARA. FINDINGS: Lung bases are clear. Multiple bilateral renal calculi are noted. These measure up to 6 mm. No ureteral calculi are present. A few punctate calcific densities along the proximal left ureter favor gonadal vein phleboliths. There are tiny suspected calculi within the bladder. No hydronephrosis or hydroureter is present. A 9 mm lesion within the midpole the left kidney is suboptimally assessed on this unenhanced exam but measures near water attenuation. This favors a cyst. Unenhanced images of liver, spleen, adrenal glands and pancreas are unremarkable with exception of pancreatic glandular atrophy. The cecum is located within the mid abdomen. There is no evidence for a bowel obstruction. Moderate amount of stool is noted within the colon and rectum. No pneumatosis, free air or portal venous gas is present. Incidental note is made of an old mild L2 compression fracture. The appendix is normal. IMPRESSION: 1. Bilateral nephrolithiasis. No hydronephrosis or hydroureter. No definite ureteral calculi. A few small calcifications along the proximal left ureter favor gonadal vein phleboliths. 2. Punctate bladder calculi. 3. No bowel obstruction. Moderate amount of stool within the colon. Electronically signed by: Jimbo Hernandez M.D. 10/26/2017 10:37 AM Dictated Date/Time: 10/26/2017 10:13 AM
== END | disposition home or self-care (01) ==
LOC: C.CTS 08:32
PROVIDERS: ATTEND Urology
DX: N31.9 Neuromuscular dysfunction of bladder, unspecified (principal); N39.46 Mixed incontinence; N20.0 Calculus of kidney; N21.0 Calculus in bladder

== ENCOUNTER → 2017-10-26 | Outpatient (CLI) | payer OTHER ==
--- NOTE | 2017-10-26 10:10 | DIAGNOSTIC IMAGING REPORT ---
TWO VIEW CHEST CLINICAL HISTORY: Preoperative examination. FINDINGS: AP and lateral chest radiographs are obtained. No prior studies are available for comparison at the time of dictation. The AP views degraded by patient rotation. The cardiomediastinal silhouette is unremarkable. Nonspecific interstitial thickening is likely chronic. There is mild elevation of left hemidiaphragm with left basilar atelectasis. No airspace consolidation or pleural effusion is seen. There is no pneumothorax. The skeletal structures are osteopenic. The bony thorax appears intact. Fusion hardware is noted in the lower cervical spine. IMPRESSION: No active disease in the chest. Electronically signed by: Jaun Merlos M.D. 10/26/2017 10:09 AM Dictated Date/Time: 10/26/2017 10:08 AM
== END | disposition home or self-care (01) ==
LOC: C.CPL 08:28
PROVIDERS: ATTEND Urology
DX: Z01.810 Encounter for preprocedural cardiovascular examination (principal)